=== PATIENT | male | born 1975 | race Caucasian/White ===

== ENCOUNTER 2017-08-03 08:21 | Observation (INO) | payer BC ==
[~2017-08-03] VITALS: Ht 177.8 cm; Wt 106.0 kg
[2017-08-03 09:17] LABS: BASOPHIL (%) 0.3 % (0-1); BASOPHIL COUNT 0.1 K/uL (0-0.1); EOSINOPHIL (%) 0.2 % (0-5); HEMATOCRIT 47.7 % (38.0-50.0); HEMOGLOBIN 16.2 G/DL (12.5-16.6); IMMATURE GRANULOCYTE (%) 0.7 % (0.0-0.7); LYMPHOCYTE (%) 11.8 % (15-42); LYMPHOCYTE COUNT 2.1 K/uL (1.0-2.8); MCH 28.6 PG (29.0-34.0); MCV 84.1 FL (86-99); MONOCYTE (%) 5.5 % (3-12); NEUTROPHIL (%) 81.5 % (45-76); NEUTROPHIL COUNT 14.5 K/uL (1.8-6.4); PLATELET COUNT 322 K/uL (156-360); RBC DIS.WIDTH-CV 12.6 % (11.8-14.6); RBC DIS.WIDTH-SD 38.1 % (39-53); RED BLOOD COUNT 5.67 M/uL (4.00-5.50); WHITE BLOOD COUNT 17.8 K/uL (4.1-10.2)
[2017-08-03 09:29] LABS: ALBUMIN 4.6 g/dL (3.2-4.8)
[2017-08-03 09:30] LABS: CHLORIDE 104 mEq/L (99-109); SODIUM 139 mEq/L (136-147)
[2017-08-03 09:32] LABS: GLUCOSE 123 mg/dL (70-99); TOTAL PROTEIN 7.5 g/dL (6.4-8.3)
[2017-08-03 09:34] LABS: TOTAL BILIRUBIN 0.8 mg/dL (0.0-1.0)
[2017-08-03 09:35] LABS: ALKALINE PHOSPHATASE 77 IU/L (3-129)
[2017-08-03 09:36] LABS: GFR ESTIMATE (CALCULATED) > 59 mL/min/ (58.99-99999)
[2017-08-03 09:37] LABS: AST (GOT) 22 IU/L (2-34); UREA NITROGEN (BUN) 18 mg/dL (9-23)
[2017-08-03 09:38] LABS: ALT (GPT) 45 IU/L (3-49)
[2017-08-03 09:39] LABS: LIPASE 22 U/L (1.0-51.0)
[2017-08-03 15:30] VITALS: BP 118/57
[2017-08-03] MEDS ORDERED: FLAGYL500 MG PO (18:52)
[2017-08-03] MEDS ORDERED: COLACE100 MG PO (18:52)
[2017-08-03] MEDS ORDERED: ONDANSETRON HCL8 MG PO (18:52)
[2017-08-03] MEDS ORDERED: CIPRO500 MG PO (18:52)
[2017-08-03] MEDS ORDERED: DILAUDID4 MG PO (18:52)
[2017-08-03 20:05] VITALS: BP 125/70
[2017-08-03 23:41] VITALS: BP 117/58
[2017-08-04 04:00] VITALS: BP 110/64
[2017-08-04 07:40] VITALS: BP 119/73
[2017-08-04 09:24] VITALS: BP 119/73
== END 2017-08-04 10:53 | disposition home or self-care (01) ==
LOC: EME 08:21 → 2EASTP 10:59 → EDOF 10:59 → ENRESERV 11:05 → 2EASTP 15:23 → ENPENDDIS 08-04 → 2EASTP 08-04 10:53
PROVIDERS: Emergency Medicine
PROC: 0DTJ4ZZ Resection of Appendix, Percutaneous Endoscopic Approach (ICD-10-PCS; principal; 2017-08-03)
DX: K35.80 Unspecified acute appendicitis (principal); K66.0 Peritoneal adhesions (postprocedural) (postinfection); Z87.11 Personal history of peptic ulcer disease; Z87.442 Personal history of urinary calculi; Z88.0 Allergy status to penicillin; Z72.0 Tobacco use
CPT/HCPCS: 71045; 74177; 80053; 83690; 85025; 88304; G0378; J0330; J1170; J1885; J1956; J2270; J2405; J2710; J7030; J7120; S0020; S0028; S0030